=== PATIENT | male | born 1980 | race Caucasian/White ===

== ENCOUNTER 2017-01-31 19:22 | Emergency (ER) | payer MEDICARE, MEDICAID ==
[~2017-01-31] VITALS: Ht 165.1 cm; Wt 70.0 kg
[~2017-01-31 19:22] MED LIST: HYDR-3535 PO
[2017-01-31 19:30] VITALS: BP 125/88; PULSE 100; RESP 18; TEMP 98.8; O2SAT 100
[2017-01-31] MEDS ORDERED: DIAZ10 PO (19:36)
[2017-01-31] MEDS ORDERED: OXYC30TA PO (19:36)
[2017-01-31] MEDS ORDERED: IBUPROFEN 200 MG TAB PO ONE (19:45)
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
== END 2017-01-31 21:44 | disposition home or self-care (01) ==
LOC: NEPD 19:22
DX: M79.604 Pain in right leg (principal); M25.572 Pain in left ankle and joints of left foot; W19.XXXA Unspecified fall, initial encounter; Y93.51 Activity, roller skating (inline) and skateboarding
CPT/HCPCS: 73552; 73600; 99283

== ENCOUNTER 2017-02-26 00:41 | Emergency (ER) | payer MEDICARE, MEDICAID ==
[~2017-02-26] VITALS: Ht 172.7 cm; Wt 70.0 kg
[~2017-02-26 00:41] MED LIST changes: +DIAZ10 PO; -HYDR-3535 PO; +OXYC30TA PO
[2017-02-26 00:42] VITALS: BP 148/90; PULSE 90; RESP 16; TEMP 99; O2SAT 99
[2017-02-26] MEDS ORDERED: OFLO1SOL RIGHT EAR (02:06)
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
== END 2017-02-26 02:38 | disposition home or self-care (01) ==
LOC: NEPD 00:41
DX: H60.331 Swimmer's ear, right ear (principal); Z87.828 Personal history of other (healed) physical injury and trauma; Z87.19 Personal history of other diseases of the digestive system; Z87.09 Personal history of other diseases of the respiratory system; Z87.39 Personal history of other diseases of the musculoskeletal system and connective tissue; Z87.2 Personal history of diseases of the skin and subcutaneous tissue
CPT/HCPCS: 99283